=== PATIENT | male | born 1980 | race Caucasian/White ===

== ENCOUNTER 2017-03-23 18:58 | Emergency (ER) | payer SELFPAY ==
[2017-03-23 19:01] VITALS: TEMP 99.6
[2017-03-23 20:34] VITALS: BP 118/79; PULSE 89
== END 2017-03-23 20:20 | disposition home or self-care (01) ==
LOC: COL.ER 18:58
DX: T63.441A Toxic effect of venom of bees, accidental (unintentional), initial encounter (principal); J06.9 Acute upper respiratory infection, unspecified; F17.210 Nicotine dependence, cigarettes, uncomplicated
CPT/HCPCS: J8540

== ENCOUNTER 2017-09-19 14:57 | Emergency (ER) | payer MEDICAID ==
[~2017-09-19] VITALS: Ht 182.9 cm; Wt 136.4 kg
[2017-09-19 15:01] VITALS: BP 158/84; PULSE 102; TEMP 99.5
[2017-09-19] MEDS ORDERED: TUSS PO (15:46)
== END 2017-09-19 16:02 | disposition home or self-care (01) ==
LOC: COL.ER 14:57
DX: J40 Bronchitis, not specified as acute or chronic (principal); Z88.0 Allergy status to penicillin; Z87.891 Personal history of nicotine dependence

== ENCOUNTER 2019-07-01 15:48 | Emergency (ER) | payer MEDICAID ==
[~2019-07-01] VITALS: Ht 182.9 cm; Wt 159.1 kg
[~2019-07-01 15:48] MED LIST: TUSS PO
[2019-07-01 16:07] VITALS: BP 113/73; TEMP 98.7
[2019-07-01] MEDS ORDERED: MAXZIDE-25MG TA1 TAB PO (16:43)
[2019-07-01] MEDS ORDERED: CYMBALTA 30MG30 MG PO (16:44)
[2019-07-01 17:25] VITALS: PULSE 89
[2019-07-01] MEDS ORDERED: TESSALON P100 MG/CAP PO (17:26)
== END 2019-07-01 17:25 | disposition home or self-care (01) ==
LOC: COL.ER 15:48
DX: J11.1 Influenza due to unidentified influenza virus with other respiratory manifestations (principal); F17.210 Nicotine dependence, cigarettes, uncomplicated

== ENCOUNTER → 2021-06-16 | Emergency (ER) | payer MEDICAID ==
[~2021-06-16] VITALS: Ht 152.4 cm; Wt 181.8 kg
[~2021-06-16] MED LIST changes: +CYMBALTA 30MG30 MG PO; +MAXZIDE-25MG TA1 TAB PO; +TESSALON P100 MG/CAP PO
[2021-06-16 21:02] VITALS: BP 173/92; PULSE 105; TEMP 97.5
== END ==
LOC: COL.ER 20:45
DX: L03.316 Cellulitis of umbilicus (principal); I10 Essential (primary) hypertension; F17.200 Nicotine dependence, unspecified, uncomplicated; Z88.0 Allergy status to penicillin

== ENCOUNTER 2021-07-02 08:24 | Outpatient (CLI) | payer MEDICAID ==
[2021-07-02 09:21] VITALS: BP 127/74; PULSE 111; TEMP 100.1
[2021-07-02 09:30] VITALS: BP 95/47; PULSE 110; TEMP 100
[2021-07-02 09:45] VITALS: BP 114/79; PULSE 111
--- NOTE | 2021-07-02 09:45 | NUR ---
Pt arrived to room 18.Pt observed short of breath with exertion.Pt SATs 81-83% after exertion,recouperated to mid 80s with rest.Pt placed on 2 liters via nasal cannulla,89-90% at rest on O2,increased to 3L via nasal cannula.Ankita Ohara assisting with notifying physician.
[2021-07-02 10:00] VITALS: BP 103/85; PULSE 99
[2021-07-02 10:15] VITALS: BP 109/72; PULSE 111
--- NOTE | 2021-07-02 10:25 | NUR ---
Messages were left shortly after pt's arrival into room 18 for monoclonal antibody infusion with offices of Sarah Ochoa NP who ordered infusion, and with pt's PCP, Dr Blankenship to inform them of pt's vital signs, hypoxia, tachypneia. Sarah returned call stating that she is not familiar with pt's hx, and asked that condition be discussed with PCP. Rizwana, nurse with Kr[facility]tof's office returned call at [phone] stating that VS were reviewed with covering PA, Rj Bey, as Dr Blankenship is out of the office. He recommends pt complete infusion then be evaluated in the ED. Primary nurse Arielle was notified of this recommedation.
--- NOTE | 2021-07-02 10:27 | NUR ---
Pt to ED via cart as directed by primary care physician.Report to ER charge nurse.Ankita Crooks assist with transfer.
[2021-07-02] MEDS ORDERED: NEIGH PO (10:29)
== END 2021-07-02 12:26 ==
LOC: EUO 08:24
DX: U07.1 COVID-19 (principal); E66.9 Obesity, unspecified; I25.10 Atherosclerotic heart disease of native coronary artery without angina pectoris
CPT/HCPCS: M0245

== ENCOUNTER 2021-07-02 10:30 | Inpatient (IN) | payer MEDICAID ==
[~2021-07-02] VITALS: Ht 167.6 cm; Wt 166.7 kg
[2021-07-02] VITALS (208 sets, daily range): BP systolic 123–136; BP diastolic 75–79; PULSE 91–102; TEMP 99.4–99.5; O2SAT 74–96
[~2021-07-02 10:30] MED LIST changes: +NEIGH PO
[2021-07-02 11:18] LABS: BASO % 0.2 % (0.0-2.0); GRAN # 7.3 K/mm3 (1.4-6.5); GRAN % 76.3 % (42.2-75.2); HEMATOCRIT 41.9 % (42.0-52.0); HEMOGLOBIN 14.4 g/dl (13.5-18.0); LYMPH # 1.5 K/mm3 (1.2-3.4); LYMPH % 15.9 % (20.0-51.0); MEAN CELL VOLUME 85 fl (80.0-100.0); MEAN CORPUSCULAR HEMOGLOBIN 29 pg (27-31); MEAN CORPUSCULAR HGB CONC 34 g/dl (33.0-37.0); MEAN PLATELET VOLUME 10.4 fl (7.4-10.4); MONO # 0.7 K/mm3 (0.1-0.6); MONO % 7.3 % (1.7-9.3); PLATELET COUNT 189 K/mm3 (130-400); RED BLOOD COUNT 4.93 M/mm3 (4.20-5.60); REDCELL DISTRIBUTION WIDTH-CV 13.2 % (11.5-14.5)
[2021-07-02 11:40] LABS: ALANINE AMINOTRANSFERASE 49 U/L (0-55); ALBUMIN 3.6 gm/dL (3.5-5.0); ALKALINE PHOSPHATASE 44 U/L (40-150); ANION GAP 14 mmol/L (7-16); AST,SGOT 97 U/L (5-34); BILIRUBIN,TOTAL 0.9 mg/dL (0.2-1.2); BLOOD UREA NITROGEN 32 mg/dL (9-21); CALCIUM 8.8 mg/dL (8.4-10.2); CARBON DIOXIDE 20 mmol/L (22-29); CHLORIDE 101 mmol/L (98-107); CREATININE, serum 1.39 mg/dL (0.72-1.25); GLUCOSE 136 mg/dL (70-99); POTASSIUM 3.8 mmol/L (3.5-4.5); SODIUM 135 mmol/L (136-145); TOTAL PROTEIN 7.5 gm/dL (6.2-8.1)
[2021-07-02 11:53] LABS: TROPONIN-I < 0.010 ng/mL (0.00-0.033)
[2021-07-02 12:44] LABS: ARTERIAL BLD GAS O2 SATURATION 91.6 % (92-100); ARTERIAL BLD GAS TCO2 CT 20.8; ARTERIAL BLOOD GAS BASE EXCESS -4.2 (-2-2); ARTERIAL BLOOD GAS HCO3 19.8 meq/L (22-26); ARTERIAL BLOOD GAS PCO2 33.2 mmHg (35-45); ARTERIAL BLOOD GAS pH 7.39 (7.35-7.45)
--- NOTE | 2021-07-02 14:21 | NUR ---
RECEIVED REPORT FROM MARQUIS KANG. AWAITING ARRIVAL OF PT TO ICU 6.
--- NOTE | 2021-07-02 14:44 | NUR ---
PT ARRIVES TO ICU 6 VIA STRETCHER ON 15L OM. PT TRANSFERS SELF TO ICU BED, STEADY GAIT NOTED BUT PT DOES GET SHOB WITH EXERTION AND HAS TO CATCH HIS BREATH BEFORE TALKING. PLACED ON BEDSIDE CONTINUOUS MONITOR, ALL VSS BUT POX 85%. PT SWTICHED OVER TO AIRVO 60L 80%, POX IMPROVED ABOVE 90%. CALL LIGHT AND URINAL WITHIN REACH. DISCUSSED POC WITH PT, VERBALIZED UNDERSTANDING.
--- NOTE | 2021-07-02 21:00 | NUR ---
SPOKE WITH PATIENT'S MAYA WHO STATED THAT THEY HAD RECEIVED THE COVID TEST AT [facility] ON TUESDAY OR TUESDAY. PATIENT'S EXPRESSED A LOT OF ANGER TOWARDS MEDICAL FIELD STATING THAT SHE DOESN'T TRUST ANYBODY IN THE MEDICAL FIELD WELL TOWARDS NOAH THAT DELAYED SCHEDULING HER A "BREATHING TEST" EVEN THOUGH SHE HAD TOLD THEM THAT HE COULDN'T BREATH FOR THE LAST YEAR, AND IF HE AND LEFT HER A SINGLE MOTHER OF 3 CHILDREN SHE WAS GONNA END UP IN THE "[place]" THIS NURSE ALLOWED HER TO EXPRESS HER FEELINGS AND ATTEMPTED TO REASSURE HER THAT ALL INTERVENTIONS THAT WERE NECESSARY WOULD BE DONE FOR HER SO THAT HE COULD COME HOME TO HER AND THEIR CHILDREN, ENCOURAGED HER TO CALL FOR UPDATES AT ANY TIME OF DAY OR NIGHT
--- NOTE | 2021-07-02 22:00 | NUR ---
PATIENT PLACED ON CPAP BY RT ON 100% O2 WILL MONITOR PROVIDED WITH CAROLYNE TO ASSIST WITH REMOVING SPUTUM WITHOUT TOTALLY REMOVING CPAP MASK
[2021-07-03] VITALS (709 sets, daily range): BP systolic 101–135; BP diastolic 58–94; PULSE 75–95; TEMP 97.6–99.6; O2SAT 75–99
--- NOTE | 2021-07-03 02:45 | NUR ---
PATIENT REQUESTED TO CHANGE OUT TO THE AIRVO AT THIS TIME, STATED THAT HE FELT LIKE HE WASN'T BREATHING RIGHT, ENCOURAGED PATIENT TO CONTINUE TO USE C PAP FOR APPROPRIATE OXYGENATION HOWEVER PATIENT DID NOT WISH TO AND WAS PLACED ON AIRVO AT 60 LPM AND 95% OXYGEN
--- NOTE | 2021-07-03 04:30 | NUR ---
PATIENT STATED TO THIS NURSE THAT HIS ENTIRE FAMILY HAD TESTED POSITIVE FOR COVID, CONTINUED TO REINFORCE TO PATIENT IMPORTANCE OF ADEQUATE OXYGENATION AND THE CHALLENGES THAT HE FACED WITH THAT DUE TO THE NATURE OF COVID PATIENT EXPRESSED UNDERSTANDING AND REQUESTED TO ATTEMPT TO USE THE CPAP AGAIN AT THIS TIME
[2021-07-03 05:09] LABS: C-REACTIVE PROTEIN 5.58 mg/dL (0.00-0.50); CALCIUM 8.2 mg/dL (8.4-10.2); CREATININE, serum 0.87 mg/dL (0.72-1.25); MAGNESIUM 2.1 mg/dL (1.6-2.6); POTASSIUM 3.8 mmol/L (3.5-4.5)
[2021-07-03 05:56] LABS: ARTERIAL BLD GAS O2 SATURATION 92.2 % (92-100); ARTERIAL BLD GAS TCO2 CT 22.5; ARTERIAL BLOOD GAS BASE EXCESS -2.5 (-2-2); ARTERIAL BLOOD GAS HCO3 21.5 meq/L (22-26); ARTERIAL BLOOD GAS PCO2 34.9 mmHg (35-45); ARTERIAL BLOOD GAS PO2 62.1 mmHg (80-100); ARTERIAL BLOOD GAS pH 7.41 (7.35-7.45)
[2021-07-03 06:19] LABS: BASO % 0.1 % (0.0-2.0); GRAN % 80.2 % (42.2-75.2); HEMATOCRIT 38.7 % (42.0-52.0); LYMPH # 1.1 K/mm3 (1.2-3.4); LYMPH % 10.8 % (20.0-51.0); MEAN CELL VOLUME 87 fl (80.0-100.0); MEAN CORPUSCULAR HEMOGLOBIN 29 pg (27-31); MEAN CORPUSCULAR HGB CONC 34 g/dl (33.0-37.0); MEAN PLATELET VOLUME 11.4 fl (7.4-10.4); MONO # 0.9 K/mm3 (0.1-0.6); MONO % 8.6 % (1.7-9.3); PLATELET COUNT 147 K/mm3 (130-400); RED BLOOD COUNT 4.45 M/mm3 (4.20-5.60); REDCELL DISTRIBUTION WIDTH-CV 13.2 % (11.5-14.5)
--- NOTE | 2021-07-03 10:30 | NUR ---
Patient's here to drop off a phone cafe operator. Able to see patient from hallway through the door. Updated on status, bipap settings & likely need to go on ventilator. tearful & discussed home situation. Provided with support & ensured that she had contact information for ICU.
--- NOTE | 2021-07-03 12:10 | NUR ---
FiO2 increased to 100% at this time. SaO2 88% on 90% FiO2. Patient continues to refuse intubation. Precedex continues to noted drowsiness; current rate 0.5 mcg\kg/min. Will continue to monitor.
--- NOTE | 2021-07-03 12:50 | NUR ---
Precedex 0.1 mcg/kg/min. Patient with Spo2 93% on 100 Bipap. Assisted with urinal at this time. Talked with patient about intubation; continues to refuse at this time. Also discussed that a catheter may be beneficial to help him conserve energy; refuses at this time. Will continue to monitor.
--- NOTE | 2021-07-03 13:40 | NUR ---
100% FiO2 with SpO2 at 96%. Decreased to 90% FiO2 at this time with SpO2 93%. Will continue to monitor.
--- NOTE | 2021-07-03 20:45 | NUR ---
PATIENT NOTED TO BE DESATING INTO THE MID TO LOW 80'S ON PULSE OX. PATIENT ALSO NOTD TO BE FIDDLING WITH BIPAP FACE MASK CAUSING SEAL TO LEAK ALONG WITH NOTED FACIAL HAIR HINDERING SEAL. APPROACHED PATIENT ABOUT POTENTIAL INTUBATION PATIENT CALLED HIS AND THIS NURSE EDUCATED ABOUT INTUBATION, AND WHAT THAT MEANT FAR AT THE TUBE BEING INSERTED INTO HIS THROAT AND ENDING UP IN HIS LUNGS TO ASSIST HIM WITH BREATHING ALSO THAT HE WOULD BE GIVEN MEDICATION TO KEEP HIM COMFORTABLE POSSIBLE. PATIENT'S , KATE ASKED AND ANSWERS TO ALL QUESTIONS GIVEN SUCH HOW LONG WOULD HE BE ON VENTILATOR, INFORMED HER THAT IT WAS HARD TO TELL BUT THAT IN MY EXPERIENCE THE LOWER HIS SATURATIONS WERE PRIOR TO INTUBATION THE PROGNOSIS BECAME WORSE. PATIENT AND WANT FOR HIM TO BE ABLE TO TALK WITH HIS CHILDREN PRIOR TO INTUBATION, POSSIBLY IN THE MORNING BECAUSE THEY WERE ASLEEP NOW
--- NOTE | 2021-07-03 21:30 | NUR ---
PATIENT'S KATE CALLED JUST PRIOR TO THIS TO SAY THAT THE CHILDREN WERE NOW AWAKE AND IF I COULD ASSIST PATIENT WITH VIDEO CALL VIA [employer] SO THAT THEY COULD SEE PATIENT PRIOR TO INTUBATION, INFORMED HER THAT I COULD BE IN ROOM AT THIS TIME, WITH MINOR TECHNICAL DIFFICULTIES ABLE TO USE MESSENGER FOR VIDEO CALL WITH HIS AND CHILDREN. DURING THIS TIME I RECEIVED A PHONE CALL FROM PERSON IDENTIFYING HIMSELF HIS BROTHER IN LAW INFORMED PERSON THAT I COULD NOT GIVE INFORMATION TO HIM ABOUT PATIENT AND SUGGESTED THAT HE CALL HIS SISTER FOR INFORMATION, THIS PERSON WAS UPSET AND BEGAN TO SWEAR AT THIS NURSE WITH REQUEST TO NOT DO SO. PERSON AGAIN REQUESTED INFORMATION AND AGAIN INFORMED THAT THIS WOULD NOT BE ABLE TO BE PROVIDED AND THAT HE WOULD NEED TO SPEAK WITH HIS SISTER FOR INFORMATION AND/OR PERMISSION TO GET INFORMATION ABOUT PATIENT. PATIENT WAS ABLE TO COMPLETE VIDEO PHONE CALL WITH AND CHILDREN THIS NURSE ALSO SPOKE WITH AND PATIENT AGAIN AND ANSWERED ANY ADDITIONAL QUESTIONS PHONE CALL WITH
--- NOTE | 2021-07-03 21:32 | NUR ---
INCREASED PRECEDEX TO ASSIST PATIENT WITH COMPLIANCE OF BIPAP DUE TO ANXIETY AND CONTINUAL FIGIDITING WITH BIPAP MASK
--- NOTE | 2021-07-03 22:00 | NUR ---
PATIENT REQUESTED FOR A HIGHWAY INSPECTOR TO COME AND PRAY FOR HIM, ANOTHER STAFF MEMBER PAGED ELECTROMECHANICAL EQUIPMENT ASSEMBLER AND INFORMED OF REQUEST. ALSO MULTIPLE UPDATES TO CHARBEL HICKS THROUGHOUT EVENTS ABOUT WISHES TO INTUBATE IN AM INITIALLY AND RECENTLY THAT PATIENT IS READY FOR INTUBATION ONCE HE SPEAKS WITH HIGHWAY INSPECTOR.
[2021-07-04] VITALS (656 sets, daily range): BP systolic 83–121; BP diastolic 45–80; PULSE 68–87; TEMP 97.6–98.7; O2SAT 75–100
--- NOTE | 2021-07-04 | NUR ---
07/03/21 2599 NOTIFIED CHARBEL HICKS OF PATIENT CONTINUED PO2 SATS IN MID 80'S WITHOUT IMPROVEMENT, SHE REQUESTED THAT ANESTHESIA BE CALL FOR INTUBATION AND ARTERIAL LINE INSERTION, TUBE MACHINE OPERATOR MARQUIS AUGUSTE NOTIFIED ANESTHESIA FOR BOTH. PATIENT DID CALL HIS PRIOR TO INTUBATION ALSO GAVE OK FOR HIS MOSLEY TO BE TRIMMED FOR APPROPRIATE FITTING OF JAMARI POST INTUBATION.
--- NOTE | 2021-07-04 01:00 | NUR ---
FUENTES BAZE AT BEDSIDE FOR INTUBATION, PATIENT INTUBATED WITH MEDICATIONS BROUGHT INTO ROOM BY ELECTRONIC GLUING MACHINE OPERATOR, AND ADMINISTERED BY ELECTRONIC GLUING MACHINE OPERATOR. INTBATION COMPLETED WITH COLOR CHANGE NOTED AND BILATERAL BREATH SOUNDS AUSCULTATED AT 0037 WITH 8.5 ETT, 26 AT TEETH SECURED WITH JAMARI. OG TUBE INSERTED TO 65 CM AT THE TEETH WITH POSITIVE GASTIRIC SOUNDS, XRAY OBTAINED TO VERIFY BOTH. VALDIVIA CATHETER ALSO PLACE AND DRAINING CLEAR YELLOW URINE. SEDATION INITIATED AND 2 SOFT WRIST RESTRAINTS INITIATED. WILL CONTINUE TO MONITOR FOR ADDITIONAL INTERVENTIONS NEEDED
--- NOTE | 2021-07-04 02:00 | NUR ---
INITIATED LEVOPHED DUE TO SBP LOWER THAN PARAMETERS, PATIENT UNABLE TO TOLERATE DECREASE IN SEDTION SETTINGS TITRATION TO ATTAIN SBP AND MAP WITHIN GOALS
[2021-07-04 04:58] LABS: BASO % 0.1 % (0.0-2.0); GRAN # 8.1 K/mm3 (1.4-6.5); GRAN % 76.5 % (42.2-75.2); HEMATOCRIT 38.6 % (42.0-52.0); HEMOGLOBIN 13.1 g/dl (13.5-18.0); LYMPH # 1.4 K/mm3 (1.2-3.4); MEAN CELL VOLUME 87 fl (80.0-100.0); MEAN CORPUSCULAR HEMOGLOBIN 30 pg (27-31); MEAN CORPUSCULAR HGB CONC 34 g/dl (33.0-37.0); MEAN PLATELET VOLUME 10.5 fl (7.4-10.4); MONO % 9.8 % (1.7-9.3); RED BLOOD COUNT 4.44 M/mm3 (4.20-5.60); REDCELL DISTRIBUTION WIDTH-CV 13.3 % (11.5-14.5)
[2021-07-04 05:03] LABS: PLATELET COUNT 278 K/mm3 (130-400)
[2021-07-04 05:06] LABS: ARTERIAL BLD GAS O2 SATURATION 96.1 % (92-100); ARTERIAL BLD GAS TCO2 CT 21.6; ARTERIAL BLOOD GAS BASE EXCESS -2.3 (-2-2); ARTERIAL BLOOD GAS HCO3 20.6 meq/L (22-26); ARTERIAL BLOOD GAS PCO2 31.5 mmHg (35-45); ARTERIAL BLOOD GAS PO2 79.4 mmHg (80-100); ARTERIAL BLOOD GAS pH 7.43 (7.35-7.45)
[2021-07-04 05:19] LABS: C-REACTIVE PROTEIN 2.96 mg/dL (0.00-0.50); CALCIUM 8.5 mg/dL (8.4-10.2); CREATININE, serum 0.93 mg/dL (0.72-1.25); MAGNESIUM 2.4 mg/dL (1.6-2.6); POTASSIUM 3.9 mmol/L (3.5-4.5); TOTAL PROTEIN 6.6 gm/dL (6.2-8.1)
[2021-07-04 05:56] LABS: BILIRUBIN,DIRECT 0.5 mg/dL (0.0-0.5)
--- NOTE | 2021-07-04 06:39 | NUR ---
PATIENT INTUBATED AT 0037 THIS DAY, SEDATION VACATION NOT PREFORMED DUE TO LESS THAN 24 HOURS SINCE INTUBATION
--- NOTE | 2021-07-04 07:59 | NUR ---
PATIENT BEGINING TO AWAKEN FROM RSI FOR INTUBATION ATTEMPTING TO SIT UP IN BED AND REACHING FOR ETT/OG TUBE KICKING FEET AND ASYNCHRONOUS BREATHING WITH VENT
--- NOTE | 2021-07-04 11:00 | NUR ---
PER Dr. John. OG has been pushed down from 65 cm at the teeth to 75 cm at the teeth. Total of 10 cm.
[2021-07-04 12:36] LABS: ARTERIAL BLD GAS O2 SATURATION 96.4 % (92-100); ARTERIAL BLD GAS TCO2 CT 21.6; ARTERIAL BLOOD GAS BASE EXCESS -2.3 (-2-2); ARTERIAL BLOOD GAS HCO3 20.6 meq/L (22-26); ARTERIAL BLOOD GAS PCO2 31.5 mmHg (35-45); ARTERIAL BLOOD GAS PO2 79.4 mmHg (80-100); ARTERIAL BLOOD GAS pH 7.43 (7.35-7.45)
[2021-07-04 13:42] LABS: ARTERIAL BLD GAS O2 SATURATION 95.2 % (92-100); ARTERIAL BLD GAS TCO2 CT 21.1; ARTERIAL BLOOD GAS BASE EXCESS -4.2 (-2-2); ARTERIAL BLOOD GAS HCO3 20.1 meq/L (22-26); ARTERIAL BLOOD GAS PO2 74.5 mmHg (80-100); ARTERIAL BLOOD GAS pH 7.38 (7.35-7.45)
--- NOTE | 2021-07-04 14:30 | NUR ---
Started tube feeding per protocol. Starting 15 ml/hr feed and Q4H 30ml flushes. Will Increase in 8 hours, 2230 by 15 ml to goal of 40 ml/hr.
--- NOTE | 2021-07-04 17:00 | NUR ---
Sedation vacation not performed at this time, PT is Proned and becomes aggitated and starts to pull at tubes and lines.
--- NOTE | 2021-07-04 20:38 | NUR ---
PATIENT'S KATE CALLED AND RETURN CALL MADE AT THIS TIME FOR UPDATE TO PATIENT STATUS, INFORMED OF CURRENT STATUS AND ALSO THAT IT WOULD BE AT LEAST A COUPLE OF WEEKS BEFORE HE WOULD EVEN HAVE A POTENTIAL TO GO HOME.
--- NOTE | 2021-07-04 21:00 | NUR ---
RT IN ROOM AND PATIENT BECOMING AGGITATED AND PUSHED SELF UP ONTO HIS LEFT SIDE FROM BEING PRONE, THIS NURSE AND ANOTHER STAFF MEMBER ENTERED ROOM TO ASSIST WITH REPOSITIONING PATIENT WITH PATIENT NOTED TO BE ABLE TO ASSIST WITH MOVING HOWEVER DUE TO TUBING AND IV LINES GETTING TANGLED PATIENT MANAGED TO BE PLACED SUPINE AND DUE TO RISK OF DISLODGING LINE, TUBES, ECT PATIENT REMAINED ON BACK AT THIS TIME, WILL ATTEMPT TO PRONE PATIENT AT LATER TIME
[2021-07-05] VITALS (671 sets, daily range): BP systolic 99–137; BP diastolic 51–76; PULSE 66–91; TEMP 97.8–99.2; O2SAT 78–100
[2021-07-05 03:29] LABS: BASO % 0.1 % (0.0-2.0); GRAN % 78.9 % (42.2-75.2); HEMOGLOBIN 11.5 g/dl (13.5-18.0); LYMPH # 0.9 K/mm3 (1.2-3.4); LYMPH % 10.4 % (20.0-51.0); MEAN CELL VOLUME 89 fl (80.0-100.0); MEAN CORPUSCULAR HEMOGLOBIN 30 pg (27-31); MEAN CORPUSCULAR HGB CONC 33 g/dl (33.0-37.0); MEAN PLATELET VOLUME 10.6 fl (7.4-10.4); MONO # 0.9 K/mm3 (0.1-0.6); MONO % 9.8 % (1.7-9.3); PLATELET COUNT 235 K/mm3 (130-400); RED BLOOD COUNT 3.86 M/mm3 (4.20-5.60); REDCELL DISTRIBUTION WIDTH-CV 13.4 % (11.5-14.5)
[2021-07-05 03:33] LABS: HEMATOCRIT 34.4 % (42.0-52.0)
[2021-07-05 03:38] LABS: ARTERIAL BLD GAS O2 SATURATION 94.7 % (92-100); ARTERIAL BLD GAS TCO2 CT 22.8; ARTERIAL BLOOD GAS BASE EXCESS -3.1 (-2-2); ARTERIAL BLOOD GAS HCO3 21.7 meq/L (22-26); ARTERIAL BLOOD GAS PO2 72.6 mmHg (80-100); ARTERIAL BLOOD GAS pH 7.37 (7.35-7.45)
[2021-07-05 03:52] LABS: C-REACTIVE PROTEIN 1.4 mg/dL (0.00-0.50); CALCIUM 7.3 mg/dL (8.4-10.2); CREATININE, serum 0.76 mg/dL (0.72-1.25); MAGNESIUM 2.3 mg/dL (1.6-2.6); POTASSIUM 3.6 mmol/L (3.5-4.5)
--- NOTE | 2021-07-05 07:00 | NUR ---
Assumed care of PT from MARQUIS Baxter. Mr. Rosas is supine in bed, as he flipped from being proned at 2100 the previous day. All lines, tubes, labs, Xray, and GTTs checked. VSS. Will closely monitor RASS, the patient becomes hard to sedate and becomes agitated. Reorientated PT to ICU during Neuro checks, pt is Alert. Call light in hand.
--- NOTE | 2021-07-05 08:00 | NUR ---
Titrating PTs sedation, RASS +2. Pt is grabbing at side rails, moving and shaking head, fighting the ventilator.
--- NOTE | 2021-07-05 11:00 | NUR ---
PT is resting more comfrortably at this time. VSS. Vent no longer alarming.
--- NOTE | 2021-07-05 11:47 | NUR ---
During the afternoon proning, the patient will be moved from medical bed to ICU type bed, due to his weight and height.
--- NOTE | 2021-07-05 14:30 | NUR ---
Changed tube feeding to new bottle.
--- NOTE | 2021-07-05 17:00 | NUR ---
PER ORDERS, for proning throughout the night the pt has been placed on a vecuronium GTT and Precedex GTT. Mr. Rosas is very hard to sedate, and is not opiod niave as he hAS A hx of recreational drug abuse.
--- NOTE | 2021-07-05 20:00 | NUR ---
PATIENT NOTED TO HAVE LARGE AMOUNT OF YELLOW COLORED SPUTUM AND YELLOW GREEN BILE APPEARING FLUID IN ORAL CAVITY, SUCTIONED WITH YAUNKER AND ORAL CARE PROVIDED
--- NOTE | 2021-07-05 21:45 | NUR ---
PATIENT'S CALLED EARLIER FOR UPDATE ON PATIENT RETURNED CALL AT THIS TIME, INFORMED OF CURRENT STATUS, , KATE QUESTIONED WHEN PATIENT WOULD BE ABLE TO COME HOME, AGAIN INFORMED HER THAT PATIENT WAS VERY SICK AND POTENTIALLY HAD WEEKS BEFORE HE COULD THINK ABOUT COMING HOME, KATE THEN STATED "WELL WHEN HE GETS HOME HE IS TAKING CARE OF THESE KIDS AND I AM NOT DOING ANYTHING, THAT IS A LONG TIME TO BE AWAY AND ME HAVE TO TAKE CARE OF THEM" ASSURED THAT WE WERE DOING EVERYTHING POSSIBLE TO HELP HER HEAL AND BE ABLE TO RETURN HOME.
--- NOTE | 2021-07-05 23:57 | NUR ---
2000 OBTAINED TRAIN OF FOUR AT THIS TIME WITH NOTED 4/4 TWITCHES VECURONIUM TITRATED TO ATTAIN 2/4 TWITCHES PER ORDERS WILL CONITNUE TO MONITOR FOR ADDITIONAL NEEDED TITRATIONS
[2021-07-06] VITALS (654 sets, daily range): BP systolic 103–144; BP diastolic 64–96; PULSE 75–96; TEMP 98–101; O2SAT 79–100
--- NOTE | 2021-07-06 | NUR ---
NOTED TRAIN OF FOUR AT 0/4 TITRATION OF VECURONIUM PER ORDERS TESTED TIMES 2 SIDES
[2021-07-06 04:30] LABS: ARTERIAL BLD GAS O2 SATURATION 99.3 % (92-100); ARTERIAL BLD GAS TCO2 CT 21.3; ARTERIAL BLOOD GAS BASE EXCESS -3.3 (-2-2); ARTERIAL BLOOD GAS HCO3 20.3 meq/L (22-26); ARTERIAL BLOOD GAS PCO2 31.9 mmHg (35-45); ARTERIAL BLOOD GAS pH 7.42 (7.35-7.45)
[2021-07-06 04:32] LABS: ARTERIAL BLOOD GAS PO2 233.9 mmHg (80-100)
[2021-07-06 05:10] LABS: BASO % 0.1 % (0.0-2.0); EOS % 0.1 % (0.0-4.0); GRAN # 10.4 K/mm3 (1.4-6.5); GRAN % 79.6 % (42.2-75.2); HEMOGLOBIN 12.1 g/dl (13.5-18.0); LYMPH # 1.6 K/mm3 (1.2-3.4); LYMPH % 11.9 % (20.0-51.0); MEAN CELL VOLUME 88 fl (80.0-100.0); MEAN CORPUSCULAR HEMOGLOBIN 30 pg (27-31); MEAN CORPUSCULAR HGB CONC 34 g/dl (33.0-37.0); MEAN PLATELET VOLUME 10.7 fl (7.4-10.4); MONO # 0.9 K/mm3 (0.1-0.6); PLATELET COUNT 305 K/mm3 (130-400); RED BLOOD COUNT 4.07 M/mm3 (4.20-5.60); REDCELL DISTRIBUTION WIDTH-CV 13.4 % (11.5-14.5)
[2021-07-06 05:12] LABS: HEMATOCRIT 35.8 % (42.0-52.0)
[2021-07-06 05:26] LABS: ALBUMIN 2.7 gm/dL (3.5-5.0); BILIRUBIN,TOTAL 0.8 mg/dL (0.2-1.2); CALCIUM 8.3 mg/dL (8.4-10.2); CREATININE, serum 0.74 mg/dL (0.72-1.25); MAGNESIUM 2.6 mg/dL (1.6-2.6); PHOSPHOROUS 3.4 mg/dL (2.3-4.7); POTASSIUM 3.9 mmol/L (3.5-4.5)
--- NOTE | 2021-07-06 06:22 | NUR ---
PATIENT IS CURRENTLY PARALYZED AND PRONED DUE TO COVID POSITIVE NOTED LARGE AMOUNT OF GASTRIC TYPE EXCRETIONS FROM ORAL CAVITY, TUBE FEEDINGS STOPPED AT 0515 DUE TO THIS UNABLE TO DETERMINE IF PATIENT IS HAVING EMESIS ALTHOUGH TUBE FEEDING RESIDUALS BETWEEN 8-10ML WITH EACH CHECK AND OG PLACEMENT VERIFIED WITH AIR BOLUS DURING FIRST TURN WHEN SMALL AMOUNT WAS NOTED
--- NOTE | 2021-07-06 07:00 | NUR ---
RECEIVED REPORT FROM MARQUIS DOHERTY. PT PRONED ON VENT SETTINGS: AC, TV 580, PEEP 16, FIO2 60%, RR 28. OGT CLAMPED AT THIS TIME PER REPORT WAS HELF AT 0515 AND CONSIDER RESTARTING ONCE UNPRONED AT PREVIOUS RATE. SECURITY RISK ANALYST IN PLACE. FC PATENT AND DRAINING TO GRAVITY. VSS. RT ART LINE IN PLACE. SEE GTT FLOWSHEET.
--- NOTE | 2021-07-06 08:00 | NUR ---
PT UNPRONED AT THIS TIME. TOLERATED WELL. NOTED FREQUENT TUBE FEED COLORED SECRETIONS COMING OUT OF MOUTH, OGT PLACED TO LIS TO HELP. XRAY CALLED THAT PT IS UNPRONED.
[2021-07-06 09:38] LABS: ARTERIAL BLD GAS O2 SATURATION 91.7 % (92-100); ARTERIAL BLOOD GAS BASE EXCESS -2.1 (-2-2); ARTERIAL BLOOD GAS HCO3 21.9 meq/L (22-26); ARTERIAL BLOOD GAS PCO2 35.1 mmHg (35-45); ARTERIAL BLOOD GAS PO2 59.1 mmHg (80-100); ARTERIAL BLOOD GAS pH 7.41 (7.35-7.45)
--- NOTE | 2021-07-06 11:15 | NUR ---
OGT ADVANCED TO 80CM AT THIS TIME. IF PT TOLERATES OK, WILL RESTART TF SHORTLY AT PREVIOUS RATE PER DR MULLEN. PER DR MULLEN, NO NEED TO GET ANOTHER CXR POST ADVANCEMENT OF OGT.
--- NOTE | 2021-07-06 11:47 | NUR ---
packing room worker contacted patient's spouse, Jenny #[phone] to discuss discharge planning. Patient lives with spouse and has been independent with his activities of daily living until he became ill. Jenny states that they got in a buddhism about 3 years ago and have a 5 and 2 year old and a baby that is 10 months. states that patient had Dr Whelan as a primary care provider and had another appointment with a Jerrod Bledsoe provider when patient became ill and entered the hospital. Worker advised that Dr John would like to have a family meeting tomorrow at 9:00am at the hospital. Jenny states that she will be here for the family meeting. Worker notified Cindy, palliative care nurse of the above meeting time and date for their presence as well.
--- NOTE | 2021-07-06 15:07 | NUR ---
PT'S PEAK PRESSURES NOTED TO BE IN MID TO HIGH 40s AND TRYING TO STACK BREATHS AGAINST THE VENT. SEE GTT FLOWSHEET. VEC PUSH GIVEN, SEE MAR.
--- NOTE | 2021-07-06 15:30 | NUR ---
PT PRONED AT THIS TIME WITH RT SIDE UP. TOLERATED WELL.
--- NOTE | 2021-07-06 21:00 | NUR ---
PATIENT REPOSITIONED AT THIS TIME, DURING PREPARATION TO TURN NOTED THAT LARGE AMOUNT OF VIEIRA COLORED EXCREMENT FROM ORAL CAVITY ON PURPLE PRONING PILLOW, THEN NOTED SHEET ON MATTRESS SATURATED ALL THE WAY TO BETWEEN PATIENT'S UMBILICUS AND HIPS, SHEET AND NEW DRY SEAMUS PADS PLACED ALONG WITH PRONING PILLOW, MOUTH CARE GIVEN NOTED PATIENT ALSO ONLY HAD 5 ML RESIDUAL AND OG TUBE AT 76CM AT LIP FOR POSITIONING
[2021-07-07] VITALS (712 sets, daily range): BP systolic 105–123; BP diastolic 69–82; PULSE 88–107; TEMP 99.1–103.1; O2SAT 94–100
[2021-07-07 04:05] LABS: ARTERIAL BLD GAS O2 SATURATION 98.2 % (92-100); ARTERIAL BLD GAS TCO2 CT 21.7; ARTERIAL BLOOD GAS BASE EXCESS -2.3 (-2-2); ARTERIAL BLOOD GAS HCO3 20.8 meq/L (22-26); ARTERIAL BLOOD GAS PCO2 30.7 mmHg (35-45); ARTERIAL BLOOD GAS PO2 113.8 mmHg (80-100); ARTERIAL BLOOD GAS pH 7.45 (7.35-7.45)
[2021-07-07 04:48] LABS: HEMOGLOBIN 11.8 g/dl (13.5-18.0); MEAN CELL VOLUME 92 fl (80.0-100.0); MEAN CORPUSCULAR HEMOGLOBIN 31 pg (27-31); MEAN CORPUSCULAR HGB CONC 34 g/dl (33.0-37.0); MEAN PLATELET VOLUME 11.2 fl (7.4-10.4); PLATELET COUNT 292 K/mm3 (130-400); RED BLOOD COUNT 3.76 M/mm3 (4.20-5.60); REDCELL DISTRIBUTION WIDTH-CV 13.7 % (11.5-14.5)
[2021-07-07 05:00] LABS: CALCIUM 7.7 mg/dL (8.4-10.2); CREATININE, serum 0.68 mg/dL (0.72-1.25); POTASSIUM 3.7 mmol/L (3.5-4.5)
[2021-07-07 05:06] LABS: HEMATOCRIT 34.6 % (42.0-52.0)
[2021-07-07 06:01] LABS: BASOPHIL 2 % (0-2); EOSINOPHIL 1 % (0-4); LYMPHOCYTE 10 % (20.0-51.0); METAMYELOCYTE 3 % (0-0); NEUTROPHILS 79 % (42.0-75.2); PLATELET ESTIMATE NORMAL (NORMAL)
[2021-07-07 06:02] LABS: TEAR DROP CELLS 1+
--- NOTE | 2021-07-07 06:12 | NUR ---
PATIENT IS CURRENTLY PRONE, NO SEDATION VACATION AT THIS TIME
--- NOTE | 2021-07-07 07:00 | NUR ---
RECEIVED REPORT FROM MARQUIS DOHERTY. PT RESTING IN PRONE POSITION ON VENT SETTINGS: TV 580, PEEP 18, RR 28, FIO2 70%. FC PATENT AND DRAINING TO GRAVITY. VSS. TRACTOR TRAILER DRIVER IN PLACE. OGT WITH TF INFUSING AT 40 ML/HR. SEE GTT FLOWSHEET.
--- NOTE | 2021-07-07 08:20 | NUR ---
PT UNPRONED AT THIS TIME. TOLERATED WELL.
--- NOTE | 2021-07-07 15:40 | NUR ---
PT PRONED AT THIS TIME. TOLERATED WELL.
--- NOTE | 2021-07-07 15:50 | NUR ---
iron worker attended family meeting with patient's spouse, provider, and nurse. Spouse was tearful and stated that she cannot make the decision to remove any treatment at this time. Worker offered support and encouraged her to reach out to her parents in [place]. Spouse works street department dispatcher and is currently residing with her sister for help with her children.
--- NOTE | 2021-07-07 17:00 | NUR ---
PT AROUSABLE WITH CHANGING OF SEDATION MEDICATIONS. ATTEMPTING TO HELP PT REMAIN CALM BUT DOES TRY TO PUSH SELF UP OFF BED AND COUGH AGAINST VENT FOR A FEW MINS BEFORE SETTLING.
--- NOTE | 2021-07-07 21:42 | NUR ---
RT NOT AVAILABLE
--- NOTE | 2021-07-07 22:22 | NUR ---
RT NOT AVAILABLE AT THIS TIME
--- NOTE | 2021-07-07 22:24 | NUR ---
RT NOT AVAILABLE AT THIS TIME
[2021-07-08] VITALS (411 sets, daily range): BP systolic 120–149; BP diastolic 79–95; PULSE 75–85; TEMP 37.7–38.3; O2SAT 89–100
--- NOTE | 2021-07-08 03:00 | NUR ---
RT NOT AVAILABLE AT THIS TIME
[2021-07-08 04:33] LABS: ARTERIAL BLD GAS O2 SATURATION 97.7 % (92-100); ARTERIAL BLD GAS TCO2 CT 26.7; ARTERIAL BLOOD GAS BASE EXCESS 1.5 (-2-2); ARTERIAL BLOOD GAS HCO3 25.5 meq/L (22-26); ARTERIAL BLOOD GAS PCO2 37.8 mmHg (35-45); ARTERIAL BLOOD GAS PO2 95.2 mmHg (80-100); ARTERIAL BLOOD GAS pH 7.45 (7.35-7.45)
[2021-07-08 05:07] LABS: HEMOGLOBIN 11.5 g/dl (13.5-18.0); MEAN CELL VOLUME 90 fl (80.0-100.0); MEAN CORPUSCULAR HEMOGLOBIN 29 pg (27-31); MEAN CORPUSCULAR HGB CONC 32 g/dl (33.0-37.0); MEAN PLATELET VOLUME 10.2 fl (7.4-10.4); PLATELET COUNT 367 K/mm3 (130-400); RED BLOOD COUNT 3.93 M/mm3 (4.20-5.60); REDCELL DISTRIBUTION WIDTH-CV 13.6 % (11.5-14.5)
[2021-07-08 05:12] LABS: HEMATOCRIT 35.5 % (42.0-52.0)
[2021-07-08 05:23] LABS: CALCIUM 8.4 mg/dL (8.4-10.2); CREATININE, serum 0.74 mg/dL (0.72-1.25); POTASSIUM 3.8 mmol/L (3.5-4.5)
--- NOTE | 2021-07-08 05:27 | NUR ---
PATIENT DOES NOT MEET REQUIREMENTS AT THIS TIME
--- NOTE | 2021-07-08 05:58 | NUR ---
PATIENT IS CURRENTLY PRONE NO SEDATION VACATION AT THIS TIME
[2021-07-08 06:13] LABS: BAND 4 % (0-10); LYMPHOCYTE 12 % (20.0-51.0); METAMYELOCYTE 2 % (0-0); NEUTROPHILS 76 % (42.0-75.2)
--- NOTE | 2021-07-08 07:00 | NUR ---
RECEIVED REPORT FROM MARQUIS DOHERTY. PT RESTING EASILY IN PRONED POSITION. VENT SETTINGS: TV 580, RR 28, PEEP 18, FIO2 70%. FC PATENT AND DRAINING TO GRAVITY. OGT CLAMPED. PRODUCTION EXPEDITER IN PLACE. SEE GTT FLOWSHEET. VSS. RECTAL TEMP NOTED 37.8C AT THIS TIME.
[2021-07-08 08:14] LABS: AMORPHOUS CRYSTAL Present (NOT PRESENT); MUCOUS Present (NOT PRESENT); PH 5 (5-8); SQUAMOUS EPITHELIAL None Seen /hpf (0-10); URINE APPEARANCE Turbid (CLEAR/HAZY); URINE BACTERIA Rare /hpf (NONE SEEN); URINE BILIRUBIN Negative (NEGATIVE); URINE BLOOD Negative (NEGATIVE); URINE COLOR Yellow (YELLOW); URINE GLUCOSE Negative (NEGATIVE); URINE KETONE Negative (NEGATIVE); URINE LEUKOCYTE ESTERASE Negative (NEGATIVE); URINE NITRATE Negative (NEGATIVE); URINE PROTEIN(semi-quant) 2+ (NEGATIVE)
--- NOTE | 2021-07-08 08:30 | NUR ---
PT UNPRONED AT THIS TIME. TF RESTARTED AT 40ML/HR.
[2021-07-08 09:18] LABS: GASTROCCULT POSITIVE
[2021-07-08 09:25] LABS: COLLECTION METHOD CLEAN CATCH
--- NOTE | 2021-07-08 10:00 | NUR ---
PER TRANSIT CLERK, TF INCREASED TO 65 ML/HR NOW TO START INCREASING TF DURING DAY WHEN UNPRONED BECAUSE PER DR WILKINS TURN OFF TF WHEN PRONED. PER DR WILKINS, IT IS OK TO FEED HIM WITH THE POSITIVE GASTRO OCCULT. DR WILKINS STATES HE WILL CHANGE THE PEPCID TO PROTONIX, SEE MAR. PER TRANSIT CLERK, AT NEXT RESIDUAL CHECK, IF TOELRATING OK, INCREASE TF TO 90ML/HR TILL PRONED TODAY. THEN TOMORROW MORNING RESTART AT 90ML/HR THEN AT NEXT RESIDUAL CHECK INCREASE TO GOAL OF 125 ML/HR.
--- NOTE | 2021-07-08 12:10 | NUR ---
RESIDUAL 0. TF INCREASED TO 90 ML/HR PER DIETICIANS INSTRUCTIONS
--- NOTE | 2021-07-08 15:15 | NUR ---
PT PRONED AT THIS TIME. TOLERATED OK. POX DROPPED TO 83% AND DID TAKE ABOUT 10 MINS TO RECOVER BACK ABOVE 90%. TF OFF AT THIS TIME AND OGT CLAMPED.
--- NOTE | 2021-07-08 17:00 | NUR ---
PT HAVING A HARD TIME SETTLIGN SINCE PRONING. VSS. ATTEMPTING TO HELP PT RELAX AND LET THE SEDATION MEDICAITONS HELP.
--- NOTE | 2021-07-08 22:30 | NUR ---
RT NOTED AT BEGINING OF SHIFT THAT PATIENT'S ETT HAD AGAIN MIGRATED TO 23-24CM AT THE TEETH WITH ORIGINAL VERIFIED APPROPRIATE PLACEMENT AT 26CM AT THE TEETH, STATES THAT EVEN THOUGH IT IS REPLACED TO THE 26CM MARKING THAT IT AGAIN MIGRATES TO THE NOTED 23-24CM MARKING, CONCERNED DUE TO PATIENT'S CONTINUED BLACK GRAINY EMESIS THAT PATIENT IS AT RISK FOR ASPIRATION NOTIFIED [facility] ICU NURSE LOLITARN AT 1951 WHO STATED SHE WOULD PASS INFORMATION ON TO DRRee AT 2008 RECEIVED RETURN PHONE CALL FROM DR. MARINELLI AND DISCUSSED CASE AND BRIEF HISTORY OF PATIENT, ORDER GIVEN TO SUPINE PATIENT AND GET CXR TO VERIFY CURRENT PLACEMENT OF TUBE [address] SUPINE WITHOUT DIFFICULTY 2199 CXR OBTAINED AND THIS NURSE ENSURED THAT IT WAS BEING SENT TO V RAD FOR INTERPRETATION
--- NOTE | 2021-07-08 23:28 | NUR ---
RT NOT AVAILABLE AT THIS TIME
[2021-07-09] VITALS (183 sets, daily range): BP systolic 116–137; BP diastolic 61–88; PULSE 56–90; TEMP 36.8–37.2; O2SAT 92–96
--- NOTE | 2021-07-09 00:10 | NUR ---
spoke with e care icu regarding cxr obtained as ordered and results noted that ett is 6.6cm above the carnia, discussed options, initially ordered to advance tube by 3cm informed RT who called e-icu and stated that when she expressed her concerns for continued migration of tube due to patient emesis that order was obtained to exchange tube. notified resort housekeeper who is going to check and see if er is available to do ett tube exchange.
--- NOTE | 2021-07-09 04:12 | NUR ---
RT NOT AVAILABLE
--- NOTE | 2021-07-09 05:00 | NUR ---
ETT TUBE EXCHANGE COMPLERED AT THIS TIME, PATIENT GIVEN PARALYTIC DURING EXCHANGE, PRIOR TO PATIENT AWAKE WITH PHYSICAL STIMULATION
[2021-07-09 05:07] LABS: ARTERIAL BLD GAS O2 SATURATION 98.1 % (92-100); ARTERIAL BLD GAS TCO2 CT 31.6; ARTERIAL BLOOD GAS BASE EXCESS 4.4 (-2-2); ARTERIAL BLOOD GAS HCO3 30.1 meq/L (22-26); ARTERIAL BLOOD GAS PCO2 49.3 mmHg (35-45); ARTERIAL BLOOD GAS PO2 104.3 mmHg (80-100)
--- NOTE | 2021-07-09 05:55 | NUR ---
PT DOES NOT MEET REQUIREMENTS
--- NOTE | 2021-07-09 06:03 | NUR ---
[address] was unable to do tube exchange, paged anesthesia and informed of need 0415 anesthesia at bedside, 0412 exchange started 0423 given 50 mg rocuronium per anesthesia drRee order 0424 co2 color change 0425 bilat breath sounds 0430 og tube replace at 80cm 0450 xray taken to confirm placement of tubes
[2021-07-09 06:13] LABS: HEMATOCRIT 38.5 % (42.0-52.0); HEMOGLOBIN 11.8 g/dl (13.5-18.0); MEAN CELL VOLUME 93 fl (80.0-100.0); MEAN CORPUSCULAR HEMOGLOBIN 29 pg (27-31); MEAN CORPUSCULAR HGB CONC 31 g/dl (33.0-37.0); MEAN PLATELET VOLUME 10.5 fl (7.4-10.4); PLATELET COUNT 324 K/mm3 (130-400); RED BLOOD COUNT 4.13 M/mm3 (4.20-5.60); REDCELL DISTRIBUTION WIDTH-CV 13.8 % (11.5-14.5)
[2021-07-09 06:25] LABS: CALCIUM 9.3 mg/dL (8.4-10.2); CREATININE, serum 0.67 mg/dL (0.72-1.25); POTASSIUM 4.6 mmol/L (3.5-4.5)
[2021-07-09 07:06] LABS: BAND 7 % (0-10); LYMPHOCYTE 8 % (20.0-51.0); METAMYELOCYTE 2 % (0-0); NEUTROPHILS 77 % (42.0-75.2)
[2021-07-09 07:07] LABS: PLATELET ESTIMATE NORMAL (NORMAL)
--- NOTE | 2021-07-09 09:00 | NUR ---
Pulled approximately 400 ml of dark green liquid from OG. Per Dr. Pimentel instructed to dump the liquid and to hold tube feeds for 24 hs. Will continue with h20 flushes.
--- NOTE | 2021-07-09 12:00 | NUR ---
Tolerating ventilator well; will continue to monitor.
--- NOTE | 2021-07-09 15:15 | NUR ---
Provided a bedbath and clean linens; tolerated well. Opens eyes with turning and repositioning and grimaces to painful stimuli, but not following commands at this time. Will continue to monitor.
--- NOTE | 2021-07-09 17:00 | NUR ---
Sedation vacation not done due to being proned.
[2021-07-10] VITALS (474 sets, daily range): BP systolic 129–150; BP diastolic 69–98; PULSE 65–100; TEMP 98–99.7; O2SAT 84–100
[2021-07-10 03:54] LABS: ARTERIAL BLD GAS O2 SATURATION 92.7 % (92-100); ARTERIAL BLOOD GAS BASE EXCESS 3.9 (-2-2); ARTERIAL BLOOD GAS HCO3 28.6 meq/L (22-26); ARTERIAL BLOOD GAS PCO2 43.7 mmHg (35-45); ARTERIAL BLOOD GAS PO2 64.3 mmHg (80-100); ARTERIAL BLOOD GAS pH 7.43 (7.35-7.45)
[2021-07-10 05:11] LABS: HEMOGLOBIN 11.7 g/dl (13.5-18.0); MEAN CELL VOLUME 92 fl (80.0-100.0); MEAN CORPUSCULAR HEMOGLOBIN 29 pg (27-31); MEAN CORPUSCULAR HGB CONC 32 g/dl (33.0-37.0); PLATELET COUNT 329 K/mm3 (130-400); RED BLOOD COUNT 3.98 M/mm3 (4.20-5.60); REDCELL DISTRIBUTION WIDTH-CV 13.4 % (11.5-14.5)
[2021-07-10 05:16] LABS: HEMATOCRIT 36.7 % (42.0-52.0)
[2021-07-10 05:32] LABS: CALCIUM 8.9 mg/dL (8.4-10.2); CREATININE, serum 0.68 mg/dL (0.72-1.25); MAGNESIUM 2.5 mg/dL (1.6-2.6)
--- NOTE | 2021-07-10 06:03 | NUR ---
NO SEDATION VACATION PATIENT IS PRONE
[2021-07-10 06:09] LABS: BAND 9 % (0-10); EOSINOPHIL 1 % (0-4); LYMPHOCYTE 10 % (20.0-51.0); NEUTROPHILS 70 % (42.0-75.2)
[2021-07-10 06:10] LABS: SCHISTOCYTES 1+
[2021-07-11] VITALS (710 sets, daily range): BP systolic 122–148; BP diastolic 77–104; PULSE 65–131; TEMP 98.8–101.5; O2SAT 72–98
[2021-07-11 04:21] LABS: HEMATOCRIT 35.4 % (42.0-52.0); HEMOGLOBIN 11.3 g/dl (13.5-18.0); MEAN CELL VOLUME 92 fl (80.0-100.0); MEAN CORPUSCULAR HEMOGLOBIN 30 pg (27-31); MEAN CORPUSCULAR HGB CONC 32 g/dl (33.0-37.0); MEAN PLATELET VOLUME 10.1 fl (7.4-10.4); PLATELET COUNT 299 K/mm3 (130-400); RED BLOOD COUNT 3.83 M/mm3 (4.20-5.60); REDCELL DISTRIBUTION WIDTH-CV 13.2 % (11.5-14.5)
[2021-07-11 04:45] LABS: BAND 18 % (0-10); LYMPHOCYTE 7 % (20.0-51.0); METAMYELOCYTE 1 % (0-0); NEUTROPHILS 60 % (42.0-75.2); PLATELET ESTIMATE NORMAL (NORMAL)
[2021-07-11 04:46] LABS: HYPOCHROMIA 2+
[2021-07-11 05:21] LABS: ALBUMIN 2.1 gm/dL (3.5-5.0); BILIRUBIN,TOTAL 0.8 mg/dL (0.2-1.2); C-REACTIVE PROTEIN 5.39 mg/dL (0.00-0.50); CALCIUM 8.2 mg/dL (8.4-10.2); CREATININE, serum 0.61 mg/dL (0.72-1.25); TOTAL PROTEIN 5.6 gm/dL (6.2-8.1)
[2021-07-11 06:08] LABS: ARTERIAL BLD GAS O2 SATURATION 85.4 % (92-100); ARTERIAL BLD GAS TCO2 CT 30.4; ARTERIAL BLOOD GAS BASE EXCESS 4.7 (-2-2); ARTERIAL BLOOD GAS HCO3 29.1 meq/L (22-26); ARTERIAL BLOOD GAS PCO2 42.5 mmHg (35-45); ARTERIAL BLOOD GAS pH 7.45 (7.35-7.45)
[2021-07-11 06:09] LABS: ARTERIAL BLOOD GAS PO2 47.6 mmHg (80-100)
--- NOTE | 2021-07-11 06:49 | NUR ---
PT SPONT OPENS EYES AND FOLLOWS COMMANDS. AFEBRILE, VITAL SIGNS STABLE. PRECEDEX, FENTANYL, AND VERSED USED FOR SEDATION. PAO2 FROM THIS MORNINGS ABG IS LOW, RT INCREASED FIO2 FROM 70% TO 90%. UOP FOR SHIFT WAS 1150 mL, NO BM NOTED. SEE EMAR/MAR FOR OTHER DETAILS.
--- NOTE | 2021-07-11 19:53 | NUR ---
Sedation vacation not performed today, as patient has occassional periods of alertness and when he does, his heart rate increases, along with his BP and respiratory rate.
[2021-07-12] VITALS (738 sets, daily range): BP systolic 106–141; BP diastolic 72–100; PULSE 68–130; TEMP 99.5–102; O2SAT 79–98
[2021-07-12 03:44] LABS: ARTERIAL BLD GAS O2 SATURATION 96.5 % (92-100); ARTERIAL BLD GAS TCO2 CT 36.7; ARTERIAL BLOOD GAS BASE EXCESS 10.2 (-2-2); ARTERIAL BLOOD GAS HCO3 35.2 meq/L (22-26); ARTERIAL BLOOD GAS PCO2 49.4 mmHg (35-45); ARTERIAL BLOOD GAS PO2 82.7 mmHg (80-100); ARTERIAL BLOOD GAS pH 7.47 (7.35-7.45)
[2021-07-12 04:14] LABS: HEMATOCRIT 38.6 % (42.0-52.0); HEMOGLOBIN 12.2 g/dl (13.5-18.0); MEAN CELL VOLUME 92 fl (80.0-100.0); MEAN CORPUSCULAR HEMOGLOBIN 29 pg (27-31); MEAN CORPUSCULAR HGB CONC 32 g/dl (33.0-37.0); MEAN PLATELET VOLUME 10.1 fl (7.4-10.4); PLATELET COUNT 275 K/mm3 (130-400); RED BLOOD COUNT 4.22 M/mm3 (4.20-5.60)
[2021-07-12 04:47] LABS: BAND 1 % (0-10); LYMPHOCYTE 13 % (20.0-51.0); NEUTROPHILS 80 % (42.0-75.2); PLATELET ESTIMATE NORMAL (NORMAL)
[2021-07-12 04:48] LABS: ALBUMIN 2.4 gm/dL (3.5-5.0); C-REACTIVE PROTEIN 5.52 mg/dL (0.00-0.50); CALCIUM 8.6 mg/dL (8.4-10.2); CREATININE, serum 0.69 mg/dL (0.72-1.25); POTASSIUM 4.2 mmol/L (3.5-4.5); TOTAL PROTEIN 6.1 gm/dL (6.2-8.1)
--- NOTE | 2021-07-12 08:15 | NUR ---
Entered patient's room as ventilator was alarming and and patient appeared tense and coughing and pulling up with arms. Nodded yes when asked if patient could hear this nurse and nodded yes when this nurse stated she would increase sedation and pain medication. Would not squeeze hands when asked. All sedation increased; will continue to monitor.
--- NOTE | 2021-07-12 12:40 | NUR ---
Patient has had a temperature of around 100-101 all day. Cool cloth on forehead and icepack in bilateral axilla. Dr. Huber aware. AST and ALT elevated and received ok to give dose of Tylenol through OG. Will continue to monitor.
--- NOTE | 2021-07-12 13:40 | NUR ---
Vancomycin Initial Dosing Pharmacy Note Ordering provider: MD JÚNIOR Indication/duration: EMPIRIC, FEVERS Relevant comorbidities: OBESITY LABS: TMAX 101.8, WBC 18.2, SCR 0.7, CRCL>100 Recommendation: VANCOMYCIN ~12MG/KG Loading dose: 2 grams Maintenance dose: 2 grams every 12 hours Trough goal: 15 ug/mL. TROUGH 07/14 @ 1400
[2021-07-12 14:56] LABS: COLLECTION METHOD IN
[2021-07-12 15:03] LABS: MUCOUS Present (NOT PRESENT); PH 6 (5-8); SQUAMOUS EPITHELIAL None Seen /hpf (0-10); URINE APPEARANCE Clear (CLEAR/HAZY); URINE BACTERIA None Seen /hpf (NONE SEEN); URINE BILIRUBIN Negative (NEGATIVE); URINE BLOOD Negative (NEGATIVE); URINE COLOR Yellow (YELLOW); URINE GLUCOSE Negative (NEGATIVE); URINE KETONE Negative (NEGATIVE); URINE LEUKOCYTE ESTERASE Negative (NEGATIVE); URINE NITRATE Negative (NEGATIVE); URINE PROTEIN(semi-quant) Negative (NEGATIVE); URINE RBC 0-2 /hpf (0-2); URINE UROBILINOGEN >=4.0 (NEGATIVE)
[2021-07-13] VITALS (717 sets, daily range): BP systolic 114–160; BP diastolic 72–106; PULSE 56–132; TEMP 97.9–100.9; O2SAT 80–100
[2021-07-13 03:23] LABS: ARTERIAL BLD GAS O2 SATURATION 97.1 % (92-100); ARTERIAL BLD GAS TCO2 CT 34.6; ARTERIAL BLOOD GAS BASE EXCESS 5.8 (-2-2); ARTERIAL BLOOD GAS HCO3 32.9 meq/L (22-26); ARTERIAL BLOOD GAS PO2 95.1 mmHg (80-100); ARTERIAL BLOOD GAS pH 7.38 (7.35-7.45)
[2021-07-13 04:37] LABS: HEMOGLOBIN 11.2 g/dl (13.5-18.0); MEAN CELL VOLUME 94 fl (80.0-100.0); MEAN CORPUSCULAR HEMOGLOBIN 29 pg (27-31); MEAN CORPUSCULAR HGB CONC 31 g/dl (33.0-37.0); MEAN PLATELET VOLUME 10.3 fl (7.4-10.4); PLATELET COUNT 205 K/mm3 (130-400); RED BLOOD COUNT 3.85 M/mm3 (4.20-5.60); REDCELL DISTRIBUTION WIDTH-CV 13.2 % (11.5-14.5)
[2021-07-13 04:42] LABS: ALBUMIN 2.3 gm/dL (3.5-5.0); C-REACTIVE PROTEIN 6.76 mg/dL (0.00-0.50); CALCIUM 8.5 mg/dL (8.4-10.2); CREATININE, serum 0.59 mg/dL (0.72-1.25); MAGNESIUM 2.5 mg/dL (1.6-2.6); POTASSIUM 4.2 mmol/L (3.5-4.5); TOTAL PROTEIN 5.9 gm/dL (6.2-8.1)
[2021-07-13 04:47] LABS: HEMATOCRIT 36.1 % (42.0-52.0)
[2021-07-13 05:12] LABS: LYMPHOCYTE 7 % (20.0-51.0); METAMYELOCYTE 1 % (0-0); NEUTROPHILS 85 % (42.0-75.2); PLATELET ESTIMATE NORMAL (NORMAL)
--- NOTE | 2021-07-13 06:59 | NUR ---
NO SEDATION VACATION LOTS OF DIFFICULTY KEEPING PATIENT SEDATED
--- NOTE | 2021-07-13 14:47 | NUR ---
Loom Technician contacted patient's , Catie and left a message.
--- NOTE | 2021-07-13 18:58 | NUR ---
SEDATION VACATION NOT PERFORMED PATIENT GETS EXTREMELY AGITATED WHEN NOT PROPERLY SEDATED. VITALS ALL GO UP AND PATIENT IS HARD TO GET CALMED BACK DOWN.
[2021-07-14] VITALS (693 sets, daily range): BP systolic 110–152; BP diastolic 70–83; PULSE 54–126; TEMP 97.4–100.6; O2SAT 74–99
[2021-07-14 03:49] LABS: ARTERIAL BLD GAS O2 SATURATION 26.6 % (92-100); ARTERIAL BLD GAS TCO2 CT 36.9; ARTERIAL BLOOD GAS BASE EXCESS 5.8 (-2-2); ARTERIAL BLOOD GAS HCO3 34.6 meq/L (22-26); ARTERIAL BLOOD GAS pH 7.28 (7.35-7.45)
[2021-07-14 03:50] LABS: ARTERIAL BLOOD GAS PCO2 75.1 mmHg (35-45); ARTERIAL BLOOD GAS PO2 18.5 mmHg (80-100)
[2021-07-14 04:19] LABS: HEMOGLOBIN 10.5 g/dl (13.5-18.0); MEAN CELL VOLUME 94 fl (80.0-100.0); MEAN CORPUSCULAR HEMOGLOBIN 30 pg (27-31); MEAN CORPUSCULAR HGB CONC 32 g/dl (33.0-37.0); MEAN PLATELET VOLUME 10.4 fl (7.4-10.4); PLATELET COUNT 165 K/mm3 (130-400); RED BLOOD COUNT 3.55 M/mm3 (4.20-5.60); REDCELL DISTRIBUTION WIDTH-CV 12.9 % (11.5-14.5)
[2021-07-14 04:24] LABS: HEMATOCRIT 33.2 % (42.0-52.0)
[2021-07-14 04:33] LABS: ALBUMIN 1.9 gm/dL (3.5-5.0); BILIRUBIN,TOTAL 0.6 mg/dL (0.2-1.2); CALCIUM 7.9 mg/dL (8.4-10.2); CREATININE, serum 0.48 mg/dL (0.72-1.25); POTASSIUM 3.7 mmol/L (3.5-4.5); TOTAL PROTEIN 5.2 gm/dL (6.2-8.1)
[2021-07-14 04:53] LABS: BAND 1 % (0-10); LYMPHOCYTE 7 % (20.0-51.0); METAMYELOCYTE 1 % (0-0); NEUTROPHILS 85 % (42.0-75.2)
[2021-07-14 04:54] LABS: PLATELET ESTIMATE NORMAL (NORMAL)
--- NOTE | 2021-07-14 05:25 | NUR ---
PATIENT HAS DIFFICULTY SLEEPING OR SEDATION/ NECURONIUM USED OFTEN/ PSYCH MEDICATION HELP/ O2 SATS DROP DRAMATICALLY WHEN PATIENT IS AWAKE
--- NOTE | 2021-07-14 07:28 | NUR ---
Report received from MARQUIS Salmeron; patient well sedated with spontaneous bouts of waking up extremely agitated and becoming tachycardic. PRN vec used last night.
--- NOTE | 2021-07-14 18:00 | NUR ---
Patient does not tolerate sedation vacations, as he gets extremely agitated and his vital signs all go up; he becomes tachypneic, tachycardic, and hypertensive. Sedation vacation not performed today.
--- NOTE | 2021-07-14 22:46 | NUR ---
AT 2114 PATIENT BECOMES AWAKE THRASHING ABOUT BED/ MEDS ADMINISTERED PULSE SLOWS/ NO MOVENENT/ O2 SATS REMAIN IN 80S/ SUCTION PERFORMED/ VENT SETTING CONFIRMED
[2021-07-15] VITALS (678 sets, daily range): BP systolic 113–171; BP diastolic 76–104; PULSE 74–111; TEMP 99.3–102.2; O2SAT 69–93
[2021-07-15 04:33] LABS: ALBUMIN 2.2 gm/dL (3.5-5.0); BILIRUBIN,TOTAL 0.7 mg/dL (0.2-1.2); C-REACTIVE PROTEIN 18.69 mg/dL (0.00-0.50); CREATININE, serum 0.56 mg/dL (0.72-1.25); POTASSIUM 3.9 mmol/L (3.5-4.5); TOTAL PROTEIN 6.1 gm/dL (6.2-8.1)
[2021-07-15 04:53] LABS: CALCIUM 8.6 mg/dL (8.4-10.2)
[2021-07-15 05:09] LABS: ARTERIAL BLD GAS O2 SATURATION 75.2 % (92-100); ARTERIAL BLD GAS TCO2 CT 35.5; ARTERIAL BLOOD GAS BASE EXCESS 6.7 (-2-2); ARTERIAL BLOOD GAS HCO3 33.7 meq/L (22-26); ARTERIAL BLOOD GAS PCO2 59.6 mmHg (35-45); ARTERIAL BLOOD GAS pH 7.37 (7.35-7.45)
[2021-07-15 05:22] LABS: ARTERIAL BLOOD GAS PO2 42.9 mmHg (80-100)
--- NOTE | 2021-07-15 05:27 | NUR ---
PATIENT STILL GETS VERY AGGRESSIVE WHEN VECIRRONIUM IS NOT PUSHED
--- NOTE | 2021-07-15 20:26 | NUR ---
Sedation not performed today as patient becomes extremely agitated and tachycardic, hypertensive and tachypneic when not properly sedated.
[2021-07-16] VITALS (703 sets, daily range): BP systolic 106–136; BP diastolic 44–96; PULSE 74–108; TEMP 98.1–100.8; O2SAT 59–96
[2021-07-16 05:20] LABS: MEAN CELL VOLUME 98 fl (80.0-100.0); MEAN CORPUSCULAR HEMOGLOBIN 29 pg (27-31); MEAN CORPUSCULAR HGB CONC 30 g/dl (33.0-37.0); MEAN PLATELET VOLUME 11.5 fl (7.4-10.4); PLATELET COUNT 155 K/mm3 (130-400); RED BLOOD COUNT 3.74 M/mm3 (4.20-5.60); REDCELL DISTRIBUTION WIDTH-CV 13.5 % (11.5-14.5)
[2021-07-16 05:36] LABS: ALBUMIN 2.1 gm/dL (3.5-5.0); BILIRUBIN,TOTAL 0.8 mg/dL (0.2-1.2); C-REACTIVE PROTEIN 22.45 mg/dL (0.00-0.50); CALCIUM 8.8 mg/dL (8.4-10.2); CREATININE, serum 0.62 mg/dL (0.72-1.25); TOTAL PROTEIN 6.1 gm/dL (6.2-8.1)
[2021-07-16 05:56] LABS: ARTERIAL BLD GAS O2 SATURATION 87.7 % (92-100); ARTERIAL BLD GAS TCO2 CT 39.2; ARTERIAL BLOOD GAS HCO3 36.9 meq/L (22-26); ARTERIAL BLOOD GAS PO2 57.1 mmHg (80-100)
[2021-07-16 05:58] LABS: ARTERIAL BLOOD GAS PCO2 77.2 mmHg (35-45)
--- NOTE | 2021-07-16 06:26 | NUR ---
SEDATION VACATION NOT ATTEMPTED AT THIS TIME PATIENT NOTED TO CONINTUE TO OVERBREATH VENT, HEART RATE REMAINS TACHYCARDIC AND B/P ON LOW END OF HYPERTENSIVE CONTINUES TO USE ACCESSORY MUSCLES FOR WORK OF BREATHING
[2021-07-16 06:34] LABS: HEMATOCRIT 36.5 % (42.0-52.0)
[2021-07-16 06:49] LABS: ANISOCYTOSIS 1+; BAND 6 % (0-10); LYMPHOCYTE 7 % (20.0-51.0); NEUTROPHILS 83 % (42.0-75.2); POLYCHROMASIA 1+
--- NOTE | 2021-07-16 16:17 | NUR ---
PT'S PEAK PRESSURE'S IN THE 50'S AND ONLY RECEIVING TIDAL VOLUMES OF 150-250. ATTEMPTED TO SUCTION ETT AND UNABLE TO PASS SUCTION CATHETER. RT NOTIFIED.
--- NOTE | 2021-07-16 16:30 | NUR ---
DR. WILKINS WAS NOTIFIED BY THIS NURSE AND RT THAT PT HAD A MUCOUS PLUG IN ETT TUBE THAT RT WAS UNABLE TO LAVAGE OUT SUCCESSFULLY. DR. WILKINS MADE DECISION TO DO BRONCHOSCOPY TO TRY TO REMOVE PLUG. PT'S WAS CALLED AND CONSENT WAS GIVEN FOR THE BRONCHOSCOPY. BRONCHOSCOPY WAS PERFORMED BY DR. WILKINS. DR. WILKINS WAS UNABLE TO REMOVE PLUG. DECISION WAS MADE TO EXCHANGE ETT TUBE. TUBE WAS EXCHANGED WITH 8.5 ETT AND IS NOW 25CM AT TEETH. PT'S SPO2 DROPPED TO MID 70'S DURING EXCHANGE AND REMAINS AROUND 78%. DR. WILKINS AWARE WAS SPO2 NOT RECOVERING.
--- NOTE | 2021-07-16 17:57 | NUR ---
NOT APPROPRIATE FOR PT AT THIS DUE TO ETT EXCHANGE AND BRONCHOSCOPY.
--- NOTE | 2021-07-16 19:13 | NUR ---
RR TEMPORARILY INCREASED AT THIS TIME FROM 28 TO 34 FOLLOWING A SEVERE SPO2 DESAT TO 58%; DUE TO MAX SETTINGS ON VENT, RATE WAS INCREASED TO ALLOW FOR MORE AIR MOVEMENT IN HOPES OF RAISING SPO2. WILL RETURN TO 28 AFTER RECRUITMENT IS SUSTAINED
[2021-07-17] VITALS (400 sets, daily range): BP systolic 74–179; BP diastolic 47–123; PULSE 86–139; TEMP 38.3; O2SAT 5–100
--- NOTE | 2021-07-17 02:27 | NUR ---
PT. TOO UNSTABLE TO STIMULATE AT THIS TIME; SUCTION NOT INDICATED AT THIS TIME
[2021-07-17 05:16] LABS: ARTERIAL BLD GAS O2 SATURATION 76.6 % (92-100); ARTERIAL BLD GAS TCO2 CT 41.5; ARTERIAL BLOOD GAS BASE EXCESS 13.9 (-2-2); ARTERIAL BLOOD GAS HCO3 39.8 meq/L (22-26); ARTERIAL BLOOD GAS PCO2 56.1 mmHg (35-45); ARTERIAL BLOOD GAS PO2 33.7 mmHg (80-100); ARTERIAL BLOOD GAS pH 7.47 (7.35-7.45)
[2021-07-17 05:37] LABS: MEAN CELL VOLUME 98 fl (80.0-100.0); MEAN CORPUSCULAR HEMOGLOBIN 30 pg (27-31); MEAN CORPUSCULAR HGB CONC 30 g/dl (33.0-37.0); MEAN PLATELET VOLUME 11.9 fl (7.4-10.4); PLATELET COUNT 155 K/mm3 (130-400); RED BLOOD COUNT 3.73 M/mm3 (4.20-5.60); REDCELL DISTRIBUTION WIDTH-CV 13.3 % (11.5-14.5)
[2021-07-17 05:51] LABS: HEMATOCRIT 36.4 % (42.0-52.0)
[2021-07-17 05:55] LABS: ALBUMIN 2.1 gm/dL (3.5-5.0); BILIRUBIN,TOTAL 0.8 mg/dL (0.2-1.2); C-REACTIVE PROTEIN 19.4 mg/dL (0.00-0.50); CALCIUM 8.8 mg/dL (8.4-10.2); CREATININE, serum 0.57 mg/dL (0.72-1.25); POTASSIUM 4.4 mmol/L (3.5-4.5); TOTAL PROTEIN 6.1 gm/dL (6.2-8.1)
[2021-07-17 06:05] LABS: BAND 3 % (0-10); HYPOCHROMIA 3+; LYMPHOCYTE 4 % (20.0-51.0); NEUTROPHILS 87 % (42.0-75.2); PLATELET ESTIMATE NORMAL (NORMAL); SCHISTOCYTES 1+
--- NOTE | 2021-07-17 07:00 | NUR ---
Assumed care of PT from MARQUIS DOHERTY. All GTTs, Lines, Tubes checked. PT continues to be tachycardic in the 130-140s with SATs 79-86% with the venitlator settings FIO2 100%. Peak pressures remaine in the 50s. PT is Hypertensive. Pt does not respond to neuro assessment.
--- NOTE | 2021-07-17 09:58 | NUR ---
Dr. Huber wants to repeat the bronchoscopy, concerned that there still may be a plug in the airway. The PTs was called by Dr. Huber to explain procedure and request consent, Dr. Huber was unable to reach the and then stated to go ahead with Bronch for medical necessity. Equipment was set up bedside. Bronchoscopy was perfored without incident and without the PTs SATS falling below 80%. Bedside procedure was completed at 1015, Sputum collection was sent to the lab.
--- NOTE | 2021-07-17 12:20 | NUR ---
During assessment, the PT SATS started to drop and stayed at 75%. Suction was performed, without improvement of SATS. RT notified. 1225: PTs SATS started to fall into the 70%s, DR. Huber notified of decline. 1227: PTs SATS continue to fall, reaching the 60%s, RT at this time took the PT off the vent and started to use the BVM with peep valve. 1232: PTs heart rate went from the 160s, into the 50s-60s. 1235: Heart rate dropped into the low 40s, at thhis time per Dr. Huber, atropine and EPI 1mg was administered. 1237: Pt went into sinus tachycardia, 164 1238: TV set to 500 1243: Sedation was cut by half, for risk of lowering BP/HR 1245: Levo initiated at 625 ml/hr [id number]: PT closely monitored. arrived at bedside. The was brief on the critical situation and poor prognosis from Dr. Huber. stated, she wants her to be a DNR. Further, she wants the medication that is keeping his heart from stopping and the medication that is maintaining his BP to be discontinued. She states " He would not want to be on a ventilator his whole life." 1310: Levo is discontinued, 1322: Pt is SB in the 40s 1323: Pt states that she wants the ventialtor turned off. 1324: Pt heart stopped. Varified by this nurse and Etta CHO. PT is surrounded by Catie and information security associate per request. was escorted to waiting room for post mortem care, all lines and tubes removed. PT was allowed back in the room to mourn.
--- NOTE | 2021-07-17 14:27 | NUR ---
Patient . Patient's spouse, Catie [phone] was with patient and made the decision to make patient a DNR status. Worker and senior chemist met with spouse and provided emotional support. Worker provided cremation services options as spouse verbalized desire for the most economical optio. Spouse desires [employer] and worker, Kady, made contact with them. They will reach out to spouse. This worker attempted to contact [facility] fostor care as spouse's 17 year old son needs to be notified of the . This attempt was unsuccessful and spouse will plan to call her son's phone and talk to his fostor mother. Spouse has car at the hospital and verbalizes that she is fine to drive to her employment to notify her superviser and then to her sister's home where she and her young children have been staying since patient's illness.
--- NOTE | 2021-07-17 17:42 | NUR ---
PT picked up by home.
== END 2021-07-17 19:55 | disposition expired | DRG 207 ==
LOC: COL.ER 10:30 → ICU 12:50
PROVIDERS: Internal Medicine Infectious Disease; Internal Medicine Pulmonary Disease; Internal Medicine Sleep Medicine; Nurse Practitioner; ADMIT Student in an Organized Health Care Education/Training Program
PROC: XW033E5 Introduction of Remdesivir Anti-infective into Peripheral Vein, Percutaneous Approach, New Technology Group 5 (ICD-10-PCS; principal; 2021-07-02)
PROC: 02HV33Z Insertion of Infusion Device into Superior Vena Cava, Percutaneous Approach (ICD-10-PCS; 2021-07-02)
PROC: 5A09457 Assistance with Respiratory Ventilation, 24-96 Consecutive Hours, Continuous Positive Airway Pressure (ICD-10-PCS; 2021-07-02)
PROC: 0BH17EZ Insertion of Endotracheal Airway into Trachea, Via Natural or Artificial Opening (ICD-10-PCS; 2021-07-02)
PROC: 5A1955Z Respiratory Ventilation, Greater than 96 Consecutive Hours (ICD-10-PCS; 2021-07-04)
PROC: 0BJ08ZZ Inspection of Tracheobronchial Tree, Via Natural or Artificial Opening Endoscopic (ICD-10-PCS; 2021-07-16)
PROC: 0B21XEZ Change Endotracheal Airway in Trachea, External Approach (ICD-10-PCS; 2021-07-16)
PROC: 0B9M8ZZ Drainage of Bilateral Lungs, Via Natural or Artificial Opening Endoscopic (ICD-10-PCS; 2021-07-17)
DX: U07.1 COVID-19 (principal); J96.01 Acute respiratory failure with hypoxia; N17.9 Acute kidney failure, unspecified; E87.2 Acidosis; E87.0 Hyperosmolality and hypernatremia; K92.1 Melena; Z68.42 Body mass index [BMI] 45.0-49.9, adult; E66.01 Morbid (severe) obesity due to excess calories; I10 Essential (primary) hypertension; G47.33 Obstructive sleep apnea (adult) (pediatric); R74.01 Elevation of levels of liver transaminase levels; R73.9 Hyperglycemia, unspecified; T38.0X5A Adverse effect of glucocorticoids and synthetic analogues, initial encounter; I95.9 Hypotension, unspecified; T85.898A Other specified complication of other internal prosthetic devices, implants and grafts, initial encounter; Z79.4 Long term (current) use of insulin
CPT/HCPCS: 99223-AI; 99233-AI; C1751; C1892; C9113; J0171; J0348; J0461; J0696; J1100; J1650; J1815; J1940; J2060; J2185; J2250; J2405; J2704; J3010; J3370; J3480; J7030; J7040; J7050; J7060; J7070; Q9967